=== PATIENT | female | born 1945 | race Caucasian/White ===

== ENCOUNTER 2019-05-24 09:41 | Outpatient (CLI) | payer OTHER | END 2019-05-24 09:43 | disposition home or self-care (01) | LOC: MAMO-SONO 09:41 | DX: Z12.31 Encounter for screening mammogram for malignant neoplasm of breast (principal); Z87.898 Personal history of other specified conditions; N64.4 Mastodynia; N63.10 Unspecified lump in the right breast, unspecified quadrant; N63.20 Unspecified lump in the left breast, unspecified quadrant ==

== ENCOUNTER → 2019-05-24 | Outpatient (CLI) | payer OTHER | END | disposition home or self-care (01) | LOC: NUCLEAR 09:00 | DX: M81.0 Age-related osteoporosis without current pathological fracture (principal) ==

== ENCOUNTER 2022-02-08 07:09 | Outpatient (CLI) | payer OTHER | END 2022-02-08 07:20 | disposition home or self-care (01) | LOC: MAMO-SONO 07:09 | PROVIDERS: ATTEND Internal Medicine | DX: Z12.31 Encounter for screening mammogram for malignant neoplasm of breast (principal); E05.90 Thyrotoxicosis, unspecified without thyrotoxic crisis or storm; J40 Bronchitis, not specified as acute or chronic; E78.9 Disorder of lipoprotein metabolism, unspecified; E88.89 Other specified metabolic disorders ==

== ENCOUNTER → 2022-02-08 | Outpatient (CLI) | payer OTHER | END | disposition home or self-care (01) | LOC: NUCLEAR 08:05 | PROVIDERS: ATTEND Internal Medicine | DX: M81.0 Age-related osteoporosis without current pathological fracture (principal); E05.90 Thyrotoxicosis, unspecified without thyrotoxic crisis or storm; J40 Bronchitis, not specified as acute or chronic; E78.9 Disorder of lipoprotein metabolism, unspecified; E88.89 Other specified metabolic disorders ==

== ENCOUNTER 2024-03-05 07:54 | Outpatient (CLI) | payer OTHER | END 2024-03-05 07:57 | disposition home or self-care (01) | LOC: MAMO-SONO 07:54 | PROVIDERS: ATTEND Internal Medicine | DX: E05.90 Thyrotoxicosis, unspecified without thyrotoxic crisis or storm (principal); J40 Bronchitis, not specified as acute or chronic; E78.9 Disorder of lipoprotein metabolism, unspecified; E88.89 Other specified metabolic disorders; N62 Hypertrophy of breast; Z12.31 Encounter for screening mammogram for malignant neoplasm of breast ==

== ENCOUNTER 2024-03-07 07:32 | Outpatient (CLI) | payer OTHER | END 2024-03-07 07:38 | disposition home or self-care (01) | LOC: SONOGRAMA 07:32 | PROVIDERS: ATTEND Internal Medicine | DX: E05.90 Thyrotoxicosis, unspecified without thyrotoxic crisis or storm (principal); J40 Bronchitis, not specified as acute or chronic; E78.9 Disorder of lipoprotein metabolism, unspecified; E88.89 Other specified metabolic disorders; N62 Hypertrophy of breast ==

== ENCOUNTER 2025-03-14 07:13 | Outpatient (CLI) | payer OTHER | END 2025-03-14 07:24 | disposition home or self-care (01) | LOC: MAMO-SONO 07:13 | PROVIDERS: ATTEND Internal Medicine | DX: N64.4 Mastodynia (principal); E05.90 Thyrotoxicosis, unspecified without thyrotoxic crisis or storm; J40 Bronchitis, not specified as acute or chronic; E78.9 Disorder of lipoprotein metabolism, unspecified; E88.89 Other specified metabolic disorders; E55.9 Vitamin D deficiency, unspecified ==

== ENCOUNTER 2025-03-14 09:48 | Outpatient (CLI) | payer OTHER | END 2025-03-14 09:49 | disposition home or self-care (01) | LOC: NUCLEAR 09:48 | PROVIDERS: ATTEND Internal Medicine | DX: E05.90 Thyrotoxicosis, unspecified without thyrotoxic crisis or storm (principal); E78.9 Disorder of lipoprotein metabolism, unspecified; E88.89 Other specified metabolic disorders; E55.9 Vitamin D deficiency, unspecified; M81.0 Age-related osteoporosis without current pathological fracture ==